=== PATIENT | male | born 1960 | race Caucasian/White ===

== ENCOUNTER 2021-11-09 04:37 | Day surgery (SDC) | payer BC ==
[2021-11-06 15:55] VITALS: BMI 23.5
[2021-11-09 08:57] VITALS: TEMP 98.2
[2021-11-09 08:59] VITALS: BP 106/58; PULSE 73
== END 2021-11-09 09:25 | disposition home or self-care (01) ==
LOC: JASU-ENDO 04:37
PROVIDERS: ATTEND Internal Medicine Gastroenterology
PROC: 0DJD8ZZ Inspection of Lower Intestinal Tract, Via Natural or Artificial Opening Endoscopic (ICD-10-PCS; principal; 2021-11-09 08:00)
DX: Z12.11 Encounter for screening for malignant neoplasm of colon (principal); Z86.010 Personal history of colon polyps